=== PATIENT | male | born 1970 | race Caucasian/White ===

== ENCOUNTER 2016-09-18 14:22 | Emergency (ER) | payer OTHER ==
[~2016-09-18] VITALS: Ht 170.2 cm; Wt 111.0 kg
[~2016-09-18 14:22] MED LIST: SIMV20TA2 PO
[2016-09-18 14:27] VITALS: Ht 170.2 cm; Wt 111.0 kg
[2016-09-18] MEDS ORDERED: SODIUM CHLORIDE 0.9% 1000ML 1,000 ML IV STA (14:44)
[2016-09-18] MEDS ORDERED: KETOROLAC TROMETHAMINE 30 MG/ML VIAL IV STA (14:44)
[2016-09-18] MEDS ORDERED: ONDANSETRON 8 MG/54 ML D5W IV STA (14:44)
[2016-09-18] MEDS ORDERED: HYDROmorphone INJ 1 MG/ML SYR IV PRN (14:45)
[2016-09-18] MEDS ORDERED: ONDANSETRON INJ 2 MG/ML 2 ML VIAL ONE (15:01)
[2016-09-18 15:18] LABS: BASO % 0.1 %; BASO ABS # 0.01 K/uL (0-0.2); COMPLETE YES; EOS % 0.1 %; HEMATOCRIT 44.6 % (42-52); IG% 0.2 %; LYMPH % 8.1 %; LYMPH ABS # 1.05 K/uL (1.2-3.4); MEAN CELL VOLUME 84.2 fL (80-100); MEAN CORPUSCULAR HEMOGLOBIN 29.2 pg (25-34); MEAN CORPUSCULAR HGB CONC 34.8 g/dl (32-36); MEAN PLATELET VOLUME 10.1 fL (7.4-10.4); MONO % 6.2 %; NEUT % 85.3 %; PLATELET COUNT 196 K/uL (130-400); WHITE BLOOD COUNT 12.98 K/uL (4.8-10.8)
[2016-09-18 15:37] LABS: BUN/CREATININE RATIO 10.1 (10-20); CALCIUM 8.9 mg/dl (8.5-10.1); CREATININE 1.4 mg/dl (0.60-1.40); POTASSIUM 3.7 mmol/L (3.5-5.1)
--- NOTE | 2016-09-18 15:38 | DIAGNOSTIC IMAGING REPORT ---
ABDOMEN AND PELVIS CT WITHOUT CONTRAST CT DOSE: 1676.74 mGy.cm HISTORY: Flank pain lower abd pain, urinary symptoms, remote history of stones TECHNIQUE: Multiaxial CT images of the abdomen and pelvis were performed without the use of intravenous and oral contrast according to the standard department stone protocol. COMPARISON STUDY: 10/25/2015 FINDINGS: 2.5 mm obstructing calculus distal right ureter several centimeters from the right ureterovesical junction. Bladder is midline. There are no contained calcifications. Moderate right hydroureteronephrosis. Several additional nonobstructing right renal calcifications. Moderate right perinephric infiltrative change. Remainder the study including liver spleen and pancreas are unremarkable. Bowel pattern is nonobstructive. IMPRESSION: 2.5 mm obstructing calculus distal right ureter. Moderate right hydroureteronephrosis. Electronically signed by: Maximilian Vaughn M.D. 09/18/2016 3:36 PM Dictated Date/Time: 09/18/2016 3:33 PM
[2016-09-18 16:10] LABS: URINE APPEARANCE CLEAR (CLEAR); URINE BILIRUBIN NEG (NEG); URINE COLOR YELLOW; URINE EPITHELIAL CELL AUTO 0-5 /lpf (0-5); URINE NITRITE NEG (NEG); URINE SPECIFIC GRAVITY 1.023 (1.000-1.030); UROBILINOGEN NEG (NEG); ZZUR CULT IF INDIC CLEAN CATCH NO
[2016-09-18] MEDS ORDERED: OXYC1TAB3 PO (16:14)
[2016-09-18] MEDS ORDERED: PROM25TA9 PO (16:14)
[2016-09-18 16:25] LABS: MANUAL MICROSCOPIC REQUIRED? NO; REVIEW REQ? NO
[2016-09-18 16:43] VITALS: BP 122/69; PULSE 64; TEMP 36.6; O2SAT 99
--- NOTE | 2016-09-18 16:59 | EMERGENCY ROOM VISIT NOTE ---
History Report prepared by Jefry: Ryley Abebe Under the Supervision of: Dr. Jorge Preciado M.D. First contact with patient: 14:31 Chief Complaint: ABDOMINAL PAIN Stated Complaint: LOWER ABD PAIN,KIDNEY STONES Nursing Triage Summary: Pt c/o left lower abdominal pain. Began at 0800 this am. Hx kidney stones. Difficulty urinating. Denies hx diverticultitis History of Present Illness The patient is a 46 year old male who presents to the Emergency Room with complaints of suprapubic abdominal pain that began this morning. He rates his current pain a 6/10 in severity. At its worst his pain is a 10/10. He has a past medical history of kidney stones. This morning, he began having this pain. He then took his 's Oxycodone to try to alleviate the pain. He states that it did not help. He then became nauseated and vomited. He is also difficulty urinating. He denies any history of diabetes or heart disease. Patient denies LOC, headache, fevers, chills, diaphoresis, visual changes, neck pain, chest pain, breathing difficulties, back pain, melena, hematochezia, urinary symptoms , numbness, weakness, lymphadenopathy, rash, or other complaints. Source of History: patient Onset: this morning Position: abdomen (suprapubic) Symptom Intensity: 6/10 Quality: sharp Timing: constant Associated Symptoms: + nausea, + vomiting Review of Systems See HPI for pertinent positives and negatives. A total of ten systems were reviewed and were otherwise negative. Past Medical & Surgical Medical Problems: (1) CALCULUS OF KIDNEY (2) PURE HYPERCHOLESTEROLEM Family History Diabetes mellitus Hypertension Social History Smoking Status: Never Smoker Alcohol Use: none Marital Status: Housing Status: lives with significant other Occupation Status: employed Current/Historical Medications Scheduled Simvastatin (Zocor), 20 MG PO QPM Scheduled PRN Oxycodone Ir (Roxicodone Ir), 1-2 TAB PO Q4H PRN for Pain Promethazine Hcl (Phenergan), 25 MG PO Q6H PRN for Nausea Allergies Coded Allergies: No Known Allergies (Unverified , 10/25/15) Physical Exam Vital Signs Date Time Temp Pulse Resp B/P Pulse Ox O2 Delivery O2 Flow Rate FiO2 09/18/16 16:43 36.6 64 16 122/69 99 09/18/16 16:42 64 16 122/69 99 Room Air 09/18/16 15:37 64 16 122/69 99 09/18/16 14:27 36.6 82 20 149/89 99 Room Air Physical Exam GENERAL: Awake, alert, uncomfortable appearing, in no distress HENT: Normocephalic, atraumatic. Oropharynx unremarkable. EYES: Normal conjunctiva. Sclera non-icteric. NECK: Supple. No nuchal rigidity. FROM. No JVD. RESPIRATORY: Clear to auscultation. CARDIAC: Regular rate, normal rhythm. Extremities warm and well perfused. Pulses equal. ABDOMEN: Soft, non-distended. No tenderness to palpation. No rebound or guarding. No masses. RECTAL: Deferred. MUSCULOSKELETAL: Chest examination reveals no tenderness. The back is symmetrical on inspection without obvious abnormality. There is no CVA tenderness to palpation. No joint edema. LOWER EXTREMITIES: Calves are equal size bilaterally and non-tender. No edema. No discoloration. NEURO: Normal sensorium. No sensory or motor deficits noted. SKIN: No rash or jaundice noted. Medical Decision & Procedures ER Provider Diagnostic Interpretation: Radiology results as stated below per my review and radiologist interpretation: ABDOMEN AND PELVIS CT WITHOUT CONTRAST CT DOSE: 1676.74 mGy.cm HISTORY: Flank pain lower abd pain, urinary symptoms, remote history of stones TECHNIQUE: Multiaxial CT images of the abdomen and pelvis were performed without the use of intravenous and oral contrast according to the standard department stone protocol. COMPARISON STUDY: 10/25/2015 FINDINGS: 2.5 mm obstructing calculus distal right ureter several centimeters from the right ureterovesical junction. Bladder is midline. There are no contained calcifications. Moderate right hydroureteronephrosis. Several additional nonobstructing right renal calcifications. Moderate right perinephric infiltrative change. Remainder the study including liver spleen and pancreas are unremarkable. Bowel pattern is nonobstructive. IMPRESSION: 2.5 mm obstructing calculus distal right ureter. Moderate right hydroureteronephrosis. Electronically signed by: Maximilian Vaughn M.D. 09/18/2016 3:36 PM Dictated Date/Time: 09/18/2016 3:33 PM Laboratory Results 09/18/16 15:00 Red Blood Count 5.30, Mean Corpuscular Volume 84.2, Mean Corpuscular Hemoglobin 29.2, Mean Corpuscular Hemoglobin Concent 34.8, Mean Platelet Volume 10.1, Neutrophils (%) (Auto) 85.3, Lymphocytes (%) (Auto) 8.1, Monocytes (%) (Auto) 6.2, Eosinophils (%) (Auto) 0.1, Basophils (%) (Auto) 0.1, Neutrophils # (Auto) 11.08, Lymphocytes # (Auto) 1.05, Monocytes # (Auto) 0.81, Eosinophils # (Auto) 0.01, Basophils # (Auto) 0.01 09/18/16 15:00 Test 09/18/16 00:00 09/18/16 15:00 Urine Color YELLOW Urine Appearance CLEAR (CLEAR) Urine pH 7.0 (4.5-7.5) Urine Specific Raymond 1.023 (1.000-1.030) Urine Protein NEG (NEG) Urine Glucose (UA) NEG (NEG) Urine Ketones TRACE (NEG) Urine Occult Blood 3+ (NEG) Urine Nitrite NEG (NEG) Urine Bilirubin NEG (NEG) Urine Urobilinogen NEG (NEG) Urine Leukocyte Esterase NEG (NEG) Urine WBC (Auto) 0 /hpf (0-5) Urine RBC (Auto) >30 /hpf (0-4) Urine Hyaline Casts (Auto) 0 /lpf (0-5) Urine Epithelial Cells (Auto) 0-5 /lpf (0-5) Urine Bacteria (Auto) NEG (NEG) White Blood Count 12.98 K/uL (4.8-10.8) Red Blood Count 5.30 M/uL (4.7-6.1) Hemoglobin 15.5 g/dL (14.0-18.0) Hematocrit 44.6 % (42-52) Mean Corpuscular Volume 84.2 fL (80-100) Mean Corpuscular Hemoglobin 29.2 pg (25-34) Mean Corpuscular Hemoglobin Concent 34.8 g/dl (32-36) Platelet Count 196 K/uL (130-400) Mean Platelet Volume 10.1 fL (7.4-10.4) Neutrophils (%) (Auto) 85.3 % Lymphocytes (%) (Auto) 8.1 % Monocytes (%) (Auto) 6.2 % Eosinophils (%) (Auto) 0.1 % Basophils (%) (Auto) 0.1 % Neutrophils # (Auto) 11.08 K/uL (1.4-6.5) Lymphocytes # (Auto) 1.05 K/uL (1.2-3.4) Monocytes # (Auto) 0.81 K/uL (0.11-0.59) Eosinophils # (Auto) 0.01 K/uL (0-0.5) Basophils # (Auto) 0.01 K/uL (0-0.2) RDW Standard Deviation 37.0 fL (36.4-46.3) RDW Coefficient of Variation 12.1 % (11.5-14.5) Immature Granulocyte % (Auto) 0.2 % Immature Granulocyte # (Auto) 0.02 K/uL (0.00-0.02) Anion Gap 8.0 mmol/L (3-11) Est Creatinine Clear Calc Drug Dose 78.4 ml/min Estimated GFR () 69.3 Estimated GFR (Non- 59.8 BUN/Creatinine Ratio 10.1 (10-20) Calcium Level 8.9 mg/dl (8.5-10.1) Total Bilirubin 2.2 mg/dl (0.2-1) Direct Bilirubin 0.3 mg/dl (0-0.2) Aspartate Amino Transf (AST/SGOT) 31 U/L (15-37) Alanine Aminotransferase (ALT/SGPT) 57 U/L (12-78) Alkaline Phosphatase 112 U/L (45-117) Total Protein 7.1 gm/dl (6.4-8.2) Albumin 3.8 gm/dl (3.4-5.0) Lipase 316 U/L (73-393) Laboratory results reviewed by me Medications Administered Medications (Trade) Dose Ordered Sig/Elvira Route Start Time Stop Time Status Last Admin Dose Admin Ketorolac Tromethamine (Toradol Inj) 10 mg NOW STAT IV 09/18/16 14:44 09/18/16 14:46 DC 09/18/16 15:07 10 MG Hydromorphone HCl 1 mg 1 mg Q15M PRN IV 09/18/16 14:45 10/02/16 14:44 09/18/16 15:07 1 MG Sodium Chloride (Nss 1000ml) 1,000 ml @ 999 mls/hr Q1H1M STAT IV 09/18/16 14:44 09/18/16 15:44 DC 09/18/16 15:06 999 MLS/HR Ondansetron HCl (Zofran Inj) 8 mg STK-MED ONCE .ROUTE 09/18/16 15:01 09/18/16 15:02 DC 09/18/16 15:07 8 MG ED Course 1431: The patient was evaluated in room B3B. A complete history and physical exam was performed. 1444: Ordered Sodium Chloride 1000 ml @ 999 mls/hr IV, Toradol Inj 10 mg IV, Ondansetron HCl 8 mg IV 1445: Ordered Dilaudid Inj 1 mg IV 1501: Ordered Ondansetron HCl 8 mg .ROUTE 1610: After reevaluation, the patient feels better. 1619: I reevaluated the patient. Discussed results and discharge instructions: He verbalized understanding and agreement. The patient is ready for discharge. Medical Decision Prior records/ancillary studies reviewed. Triage Nursing notes reviewed and agree them. The patient's history was concerning for abdominal pain. Differential diagnosis: Etiologies such as renal colic, appendicitis, diverticulitis, mesenteric ischemia, aortic pathology, infections, inflammatory bowel disease, PUD, biliary pathology, UTI, as well as others were entertained. Physical examination findings: As above. ER treatment provided: IV normal saline IV Zofran IV Dilaudid IV Toradol On reassessment the patient felt better. Diagnostic interpretation by me: The labs revealed a slight leukocytosis. Chemistry panel was unremarkable. The patient has a slight increase in bili function LFTs are otherwise negative.. Urinalysis revealed hematuria. There was no sign of UTI. Imaging studies: CT of the abdomen and pelvis as above. Consultation: A consultation was placed with the hospitalist. The case was discussed and diagnostics were reviewed. The patient was evaluated in the ER for further treatment. It appears that the patient has isolated renal colic from a right sided stone. By the evaluation outlined above emergent etiologies such as appendicitis, diverticulitis, mesenteric ischemia, aortic pathology, infections, inflammatory bowel disease, PUD, biliary pathology, UTI, as well as others were deemed relatively unlikely. The patient and family were informed about the findings as listed above. All questions were answered and they were pleased with the treatment. Return instructions were outlined and the patient was discharged in stable condition. Outpatient prescription management: Oxy IR 5mg 1-2 po Q4 hrs prn Flomax 0.4mg daily. Phenergan Referral: The pt was referred to [facility] for follow up care regarding their stone. The chart was completed utilizing [employer] Speech voice recognition software. Grammatical errors, random word insertions, pronoun errors, and incomplete sentences are an occasional consequence of this system due to software limitations, ambient noise, and hardware issues. Any formal questions or concerns about the content, text, or information contained within the body of this dictation should be directly addressed to the physician for clarification. [place] Drug Monitoring Program Search Results: patient reviewed within database, no issues identified Impression Primary Impression: Ureterolithiasis Scribe Attestation The scribe's documentation has been prepared under my direction and personally reviewed by me in its entirety. I confirm that the note above accurately reflects all work, treatment, procedures, and medical decision making performed by me. Departure Information Dispostion Home / Self-Care Prescriptions Promethazine Hcl (Phenergan) 25 Mg Tab 25 MG PO Q6H Y for Nausea, #10 TAB Prov: Jorge Preciado MD 09/18/16 Oxycodone Ir (Roxicodone Ir) 5 Mg Tab 1-2 TAB PO Q4H Y for Pain, #15 TAB Prov: Jorge Preciado MD 09/18/16 Referrals No Doctor, Assigned (PCP) Forms Call Back Authorization, HOME CARE DOCUMENTATION FORM, IMPORTANT VISIT INFORMATION Patient Instructions [facility] Additional Instructions KIDNEY STONE INSTRUCTIONS: Oxycodone Immediate Release (OxyIR) 5mg: Take 1-2 pills every four hours for pain. Avoid alcohol, operating machinery or dangerous equipment, working on ladders or roofs, DRIVING, or situations where being under the influence may be dangerous. It is recommended to use an [id number] stool softener such as Colace, 100mg twice daily while taking this medication to avoid constipation. Phenergan 25mg: Take one every six hours as needed for nausea. Avoid alcohol, operating machinery or dangerous equipment, working on ladders or roofs, DRIVING , or situations where being under the influence may be dangerous. Ibuprofen(Motrin, Advil) may be used for fever or pain. Use 600mg every six hours as needed. Take with food. Avoid using more than 2400mg in a 24 hour period. Do not use 2400mg per day for more than three consecutive days without physician direction. Prolonged inappropriate use can lead to stomach upset or ulcers. This medication can be taken if you need to drive, work, or perform activities which may be dangerous when taking narcotic pain medication. (AND/OR) Acetaminophen(Tylenol) may be used for fever or pain. Use 1000mg every six hours as needed. Avoid using more than 4000mg in a 24 hour period. This medication can be taken if you need to drive, work, or perform activities which may be dangerous when taking narcotic pain medication. Strain your urine and collect all the stones or debris for the urologists. Rest and avoid strenuous activity until your stone passes and symptoms resolve. Drink plenty of fluids. Return to the ER for worsening abdominal or back pain, vomiting, fevers, passing out, or as needed. Follow up with [facility] tomorrow, [phone], to arrange a visit.
== END 2016-09-18 16:44 | disposition home or self-care (01) ==
LOC: C.EDB 14:24
DX: N20.1 Calculus of ureter (principal); N13.30 Unspecified hydronephrosis; E78.00 Pure hypercholesterolemia, unspecified; Z87.442 Personal history of urinary calculi; Z79.899 Other long term (current) drug therapy; Z83.3 Family history of diabetes mellitus; Z82.49 Family history of ischemic heart disease and other diseases of the circulatory system

== ENCOUNTER 2016-09-21 03:28 | Emergency (ER) | payer OTHER ==
[~2016-09-21] VITALS: Ht 170.2 cm; Wt 112.1 kg
[~2016-09-21 03:28] MED LIST changes: +OXYC1TAB3 PO; +PROM25TA9 PO
[2016-09-21 03:35] VITALS: TEMP 37; Ht 170.2 cm; Wt 112.1 kg
[2016-09-21] MEDS ORDERED: KETOROLAC TROMETHAMINE 30 MG/ML VIAL IV STA (03:56)
[2016-09-21] MEDS ORDERED: SODIUM CHLORIDE 0.9% 1000ML 1,000 ML IV ONE (04:00)
[2016-09-21 04:35] LABS: BASO % 0.1 %; BASO ABS # 0.01 K/uL (0-0.2); COMPLETE YES; EOS % 1.6 %; HEMATOCRIT 39.8 % (42-52); LYMPH % 13.7 %; LYMPH ABS # 1.09 K/uL (1.2-3.4); MEAN CELL VOLUME 84.3 fL (80-100); MEAN CORPUSCULAR HEMOGLOBIN 29.4 pg (25-34); MEAN CORPUSCULAR HGB CONC 34.9 g/dl (32-36); MEAN PLATELET VOLUME 9.8 fL (7.4-10.4); MONO % 10.4 %; NEUT % 74.2 %; PLATELET COUNT 180 K/uL (130-400); RED BLOOD COUNT 4.72 M/uL (4.7-6.1); URINE APPEARANCE CLEAR (CLEAR); URINE BILIRUBIN NEG (NEG); URINE COLOR YELLOW; URINE NITRITE NEG (NEG); URINE PH 5.5 (4.5-7.5); URINE SPECIFIC GRAVITY 1.025 (1.000-1.030); UROBILINOGEN NEG (NEG); WHITE BLOOD COUNT 7.95 K/uL (4.8-10.8); ZZUR CULT IF INDIC CLEAN CATCH NO
[2016-09-21 04:44] LABS: MANUAL MICROSCOPIC REQUIRED? NO; REVIEW REQ? NO
[2016-09-21 04:53] LABS: BUN/CREATININE RATIO 7.9 (10-20); CALCIUM 8.7 mg/dl (8.5-10.1); CREATININE 1.6 mg/dl (0.60-1.40); POTASSIUM 4.1 mmol/L (3.5-5.1)
--- NOTE | 2016-09-21 07:19 | DIAGNOSTIC IMAGING REPORT ---
RENAL ULTRASOUND CLINICAL HISTORY: Recent right ureteral calculi on ct COMPARISON STUDY: CT of the abdomen and pelvis September 18, 2016 and KUB September 21, 2016. TECHNIQUE: Sonography of the kidneys and the urinary bladder was performed. FINDINGS: Mild right hydronephrosis is similar to prior CT of September 18, 2016. There is no left hydronephrosis. The right kidney measures 11.7 x 6.7 x 5.4 cm and left measures 11.6 x 6 x 5.6 cm. A distal right ureteral calculus located approximately 1.5 cm from the bladder is noted. This measures approximately 3 mm. Neither ureteral jet was identified. IMPRESSION: Mild right hydroureteronephrosis due to a distal right ureteral calculus which measures approximately 3 mm. Electronically signed by: Garry Fitch M.D. 09/21/2016 7:18 AM Dictated Date/Time: 09/21/2016 7:14 AM
--- NOTE | 2016-09-21 07:21 | DIAGNOSTIC IMAGING REPORT ---
ULTRASOUND RIGHT UPPER QUADRANT ABDOMEN CLINICAL HISTORY: Right upper quadrant abdominal pain. COMPARISON STUDY: Abdominal CT dated 09/18/2016. TECHNIQUE: Real-time, grayscale, and color flow sonography of the right upper quadrant of the abdomen was performed. Images are reviewed in the transverse and longitudinal planes. FINDINGS: Liver: The liver is normal in size and echotexture. There is no intrahepatic biliary ductal dilatation. The main portal vein is patent. Gallbladder: The gallbladder is contracted and grossly normal in appearance. No gallstones are identified. There is no gallbladder wall thickening. There is trace nonspecific pericholecystic fluid. A sonographic Smyth's sign is reportedly absent. The common bile duct measures up to 0.3 cm in diameter. Pancreas: Not well visualized due to overlying bowel gas. Right kidney: Survey images of the right kidney demonstrate normal size and echotexture. There is mild right-sided hydronephrosis. Ascites: None. IMPRESSION: 1. There is mild right hydronephrosis. This corresponds to the patient's known obstructing ureteral calculus seen on 09/18/[address] 2. No gallstones are identified. The gallbladder is contracted and there is no sonographic evidence of acute cholecystitis. 3. There is trace nonspecific pericholecystic fluid. 4. The pancreas was not well visualized due to overlying bowel gas. Electronically signed by: Grzegorz Mcdaniel M.D. 09/21/2016 7:20 AM Dictated Date/Time: 09/21/2016 7:16 AM
[2016-09-21 07:52] VITALS: BP 131/75; PULSE 64; O2SAT 97
--- NOTE | 2016-09-21 07:53 | DIAGNOSTIC IMAGING REPORT ---
KUB CLINICAL HISTORY: Nephrolithiasis. Known right ureteral calculus. FINDINGS: 2 AP supine abdominal radiographs are correlated with abdominal CT dated 09/18/2016 and compared to study dated 12/09/2007. There is a nonobstructed abdominal bowel gas pattern. Moderate fecal retention is noted in the right colon. No calcifications are seen projecting over either kidney. There are 3 small calcification identified in the right hemipelvis. These are both new from 12/09/2007 and one of these likely represents the patient's known obstructing ureteral stone. Phleboliths in the left hemipelvis are unchanged. The bony structures appear intact. IMPRESSION: 1. There are 3 calcifications identified in the right hemipelvis measuring 2 to 3 mm. It is unclear which of these calcifications represents the patient's known obstructing distal ureteral stone. 2. No additional calcifications project over either kidney. Electronically signed by: Grzegorz Mcdaniel M.D. 09/21/2016 7:52 AM Dictated Date/Time: 09/21/2016 7:49 AM
--- NOTE | 2016-09-22 02:42 | EMERGENCY ROOM VISIT NOTE ---
History First contact with patient: 03:48 Chief Complaint: ABDOMINAL PAIN Stated Complaint: STOMACH PAIN Nursing Triage Summary: Reports consistant severe mid lower abdomen. Denies n/v. Reports last BM 09/20 and was "small". Denies diarrhea. Abdomen appears WNL. BS present. History of Present Illness The patient is a 46 year old male who presents to the Emergency Room with complaints of very low abdominal pain for the past one day. He states his pain is just to the right of midline. He has not had nausea, vomiting, or diarrhea. He was diagnosed with a ureteral calculi on CT imaging 3 days ago, but states the stone was small and he believes he may have passed it. The patient has not taken his oxycodone that was prescribed to him because he has otherwise been feeling well. No difficulty using the bathroom. No previous surgical history of his abdomen. No fever or chills. He rates his discomfort a dull and persistent 7/10. Review of Systems More than 10 systems were reviewed and otherwise negative with the exception of history of present illness. Past Medical/Surgical History Medical Problems: (1) CALCULUS OF KIDNEY (2) PURE HYPERCHOLESTEROLEM Family History Diabetes mellitus Hypertension Social History Smoking Status: Never Smoker Alcohol Use: none Marital Status: Housing Status: lives with significant other Occupation Status: employed Current/Historical Medications Scheduled Simvastatin (Zocor), 20 MG PO QPM Scheduled PRN Oxycodone Ir (Roxicodone Ir), 1-2 TAB PO Q4H PRN for Pain Promethazine Hcl (Phenergan), 25 MG PO Q6H PRN for Nausea Allergies Coded Allergies: No Known Allergies (Unverified , 09/21/16) Physical Exam Vital Signs Date Time Temp Pulse Resp B/P Pulse Ox O2 Delivery O2 Flow Rate FiO2 09/21/16 07:52 64 20 131/75 97 09/21/16 06:16 73 16 127/71 96 Room Air 09/21/16 03:35 37.0 74 16 141/91 95 Room Air Pain Rating (0-10): 2.0 Physical Exam VITALS: Vitals are noted on the nurse's note and reviewed by myself. Vital signs stable. GENERAL: Well-developed, well-nourished, white male who appears mild to moderately uncomfortable. He is able to lay flat on his emergency department bed. Patient is cooperative with the examination. HEAD: Normocephalic atraumatic. HEART: Regular rate and rhythm without murmurs gallops or rubs. LUNGS: Clear to auscultation bilaterally without wheezes, rales or rhonchi. No retractions or accessory muscle use. ABDOMEN: Positive normal bowel sounds x 4. Soft, nontender, without masses or organomegaly. No guarding or rebound tenderness. MUSCULOSKELETAL: No muscle atrophy, erythema, or edema noted. Full range of motion without joint tenderness in all extremities. Medical Decision & Procedures ER Provider Diagnostic Interpretation: KUB CLINICAL HISTORY: Nephrolithiasis. Known right ureteral calculus. FINDINGS: 2 AP supine abdominal radiographs are correlated with abdominal CT dated 09/18/2016 and compared to study dated 12/09/2007. There is a nonobstructed abdominal bowel gas pattern. Moderate fecal retention is noted in the right colon. No calcifications are seen projecting over either kidney. There are 3 small calcification identified in the right hemipelvis. These are both new from 12/09/2007 and one of these likely represents the patient's known obstructing ureteral stone. Phleboliths in the left hemipelvis are unchanged. The bony structures appear intact. IMPRESSION: 1. There are 3 calcifications identified in the right hemipelvis measuring 2 to 3 mm. It is unclear which of these calcifications represents the patient's known obstructing distal ureteral stone. 2. No additional calcifications project over either kidney. RENAL ULTRASOUND CLINICAL HISTORY: Recent right ureteral calculi on ct COMPARISON STUDY: CT of the abdomen and pelvis September 18, 2016 and KUB September 21, 2016. TECHNIQUE: Sonography of the kidneys and the urinary bladder was performed. FINDINGS: Mild right hydronephrosis is similar to prior CT of September 18, 2016. There is no left hydronephrosis. The right kidney measures 11.7 x 6.7 x 5.4 cm and left measures 11.6 x 6 x 5.6 cm. A distal right ureteral calculus located approximately 1.5 cm from the bladder is noted. This measures approximately 3 mm. Neither ureteral jet was identified. IMPRESSION: Mild right hydroureteronephrosis due to a distal right ureteral calculus which measures approximately 3 mm. ULTRASOUND RIGHT UPPER QUADRANT ABDOMEN CLINICAL HISTORY: Right upper quadrant abdominal pain. COMPARISON STUDY: Abdominal CT dated 09/18/2016. TECHNIQUE: Real-time, grayscale, and color flow sonography of the right upper quadrant of the abdomen was performed. Images are reviewed in the transverse and longitudinal planes. FINDINGS: Liver: The liver is normal in size and echotexture. There is no intrahepatic biliary ductal dilatation. The main portal vein is patent. Gallbladder: The gallbladder is contracted and grossly normal in appearance. No gallstones are identified. There is no gallbladder wall thickening. There is trace nonspecific pericholecystic fluid. A sonographic Smyth's sign is reportedly absent. The common bile duct measures up to 0.3 cm in diameter. Pancreas: Not well visualized due to overlying bowel gas. Right kidney: Survey images of the right kidney demonstrate normal size and echotexture. There is mild right-sided hydronephrosis. Ascites: None. IMPRESSION: 1. There is mild right hydronephrosis. This corresponds to the patient's known obstructing ureteral calculus seen on 09/18/[address] 2. No gallstones are identified. The gallbladder is contracted and there is no sonographic evidence of acute cholecystitis. 3. There is trace nonspecific pericholecystic fluid. 4. The pancreas was not well visualized due to overlying bowel gas. Laboratory Results 09/21/16 02:40 Red Blood Count 4.72, Mean Corpuscular Volume 84.3, Mean Corpuscular Hemoglobin 29.4, Mean Corpuscular Hemoglobin Concent 34.9, Mean Platelet Volume 9.8, Neutrophils (%) (Auto) 74.2, Lymphocytes (%) (Auto) 13.7, Monocytes (%) (Auto) 10.4, Eosinophils (%) (Auto) 1.6, Basophils (%) (Auto) 0.1, Neutrophils # (Auto ) 5.89, Lymphocytes # (Auto) 1.09, Monocytes # (Auto) 0.83, Eosinophils # (Auto ) 0.13, Basophils # (Auto) 0.01 09/21/16 02:40 Test 09/21/16 02:40 White Blood Count 7.95 K/uL (4.8-10.8) Red Blood Count 4.72 M/uL (4.7-6.1) Hemoglobin 13.9 g/dL (14.0-18.0) Hematocrit 39.8 % (42-52) Mean Corpuscular Volume 84.3 fL (80-100) Mean Corpuscular Hemoglobin 29.4 pg (25-34) Mean Corpuscular Hemoglobin Concent 34.9 g/dl (32-36) Platelet Count 180 K/uL (130-400) Mean Platelet Volume 9.8 fL (7.4-10.4) Neutrophils (%) (Auto) 74.2 % Lymphocytes (%) (Auto) 13.7 % Monocytes (%) (Auto) 10.4 % Eosinophils (%) (Auto) 1.6 % Basophils (%) (Auto) 0.1 % Neutrophils # (Auto) 5.89 K/uL (1.4-6.5) Lymphocytes # (Auto) 1.09 K/uL (1.2-3.4) Monocytes # (Auto) 0.83 K/uL (0.11-0.59) Eosinophils # (Auto) 0.13 K/uL (0-0.5) Basophils # (Auto) 0.01 K/uL (0-0.2) RDW Standard Deviation 37.2 fL (36.4-46.3) RDW Coefficient of Variation 12.1 % (11.5-14.5) Immature Granulocyte % (Auto) 0.0 % Immature Granulocyte # (Auto) 0.00 K/uL (0.00-0.02) Urine Color YELLOW Urine Appearance CLEAR (CLEAR) Urine pH 5.5 (4.5-7.5) Urine Specific [place] 1.025 (1.000-1.030) Urine Protein NEG (NEG) Urine Glucose (UA) NEG (NEG) Urine Ketones NEG (NEG) Urine Occult Blood NEG (NEG) Urine Nitrite NEG (NEG) Urine Bilirubin NEG (NEG) Urine Urobilinogen NEG (NEG) Urine Leukocyte Esterase NEG (NEG) Anion Gap 4.0 mmol/L (3-11) Est Creatinine Clear Calc Drug Dose 69.0 ml/min Estimated GFR () 59.0 Estimated GFR (Non- 50.9 BUN/Creatinine Ratio 7.9 (10-20) Calcium Level 8.7 mg/dl (8.5-10.1) Total Bilirubin 1.9 mg/dl (0.2-1) Aspartate Amino Transf (AST/SGOT) 72 U/L (15-37) Alanine Aminotransferase (ALT/SGPT) 89 U/L (12-78) Alkaline Phosphatase 125 U/L (45-117) Total Protein 6.7 gm/dl (6.4-8.2) Albumin 3.3 gm/dl (3.4-5.0) Globulin 3.4 gm/dl (2.5-4.0) Albumin/Globulin Ratio 1.0 (0.9-2) Lipase 556 U/L (73-393) Medications Administered Medications (Trade) Dose Ordered Sig/Elvira Route Start Time Stop Time Status Last Admin Dose Admin Sodium Chloride (Nss 1000ml) 1,000 ml @ 999 mls/hr Q1H1M ONCE IV 09/21/16 04:00 09/21/16 05:00 DC 09/21/16 04:14 999 MLS/HR Ketorolac Tromethamine (Toradol Inj) 30 mg NOW STAT IV 09/21/16 03:56 09/21/16 03:58 DC 09/21/16 04:16 30 MG ED Course Physical exam and history were performed. Nursing notes and EMR were reviewed. Patient appears to have reports a very low abdominal pain for the past day. He has a recent diagnosis of ureteral calculi on the right. On examination the patient does not have reproducible tenderness on palpation but he does appear uncomfortable. IV access was established and labs were obtained. The patient was hydrated medicated as above. Because of his recent CT scan I elected to perform a KUB and ultrasound of the kidneys. The patient's blood work is as above and was reviewed. He does not have a significantly elevated white blood cell count or gross anemia, bandemia, or significant electrolyte imbalance. Lipase and transaminases are slightly elevated when compared to labs from a few days ago, and because of this I did elect to perform an ultrasound of the right upper quadrant. The patient ultrasound appears to show a small distal right UVJ ureteral calculi. Clinically this is to correlate with the patient's symptoms. Ultrasound of the gallbladder does not show obvious signs of cholecystitis or other explanation for his slight increase of LFTs and transaminases. I discussed options of care with the patient, as he seems to have a persistent calculi. The patient feels comfortable with discharge home. He will need to follow with urology for his symptoms. The patient has active prescriptions for oxycodone, which she has not started. He may take these as prescribed. He was otherwise invited back to the ER with any new, worsening, or concerning symptoms. The chart was completed utilizing Dragon Speech Voice Recognition Software. Grammatical errors, random word insertions, pronoun errors, and incomplete sentences are an occasional consequence of this system due to software limitations, ambient noise, and hardware issues. Any formal questions or concerns about the content, text, or information contained within the body of this dictation should be directly addressed to the provider for clarification. . Medical Decision Differential diagnosis: Etiologies such as renal colic, appendicitis, diverticulitis, mesenteric ischemia, aortic pathology, infections, inflammatory bowel disease, PUD, biliary pathology, UTI, as well as others were entertained. Impression Primary Impression: Ureteral calculus, right Departure Information Dispostion Home / Self-Care Condition FAIR Referrals Jose Atkinson M.D. Forms Call Back Authorization, HOME CARE DOCUMENTATION FORM, IMPORTANT VISIT INFORMATION Patient Instructions My [facility] Additional Instructions You were seen and evaluated today on an emergency basis only. This is not a substitute for, or an effort to provide, complete comprehensive medical care. It is not possible to recognize and treat all injuries or illnesses in a single emergency department visit. For this reason it is recommended that you followup with urology, Dr. Atkinson's office for ongoing evaluation For baseline pain relief you may alternate ibuprofen and acetaminophen every 4 hours for pain control. Take 600 mg ibuprofen (Advil) and then 4 hours later take 1000 mg acetaminophen (Tylenol). Do not take more than 3000 mg acetaminophen in a single day. Continue your at-home medications as prescribed You are welcome to return to the emergency department anytime with new, worsening, or concerning symptoms.
== END 2016-09-21 07:55 | disposition home or self-care (01) ==
LOC: C.EDB 03:29
DX: N20.1 Calculus of ureter (principal); Z87.442 Personal history of urinary calculi; E78.00 Pure hypercholesterolemia, unspecified; Z83.3 Family history of diabetes mellitus; Z82.49 Family history of ischemic heart disease and other diseases of the circulatory system; Z79.899 Other long term (current) drug therapy

== ENCOUNTER → 2017-03-23 | Outpatient (CLI) | payer OTHER ==
[~2017-03-23] MED LIST changes: -OXYC1TAB3 PO; -PROM25TA9 PO
[2017-03-23 11:14] LABS: ESTIMATED AVERAGE GLUCOSE 128 mg/dl; HA1C FLAG Normal (Normal)
[2017-03-23 11:15] LABS: ALT/SGPT 49 U/L (12-78); AST/SGOT 30 U/L (15-37); BLOOD UREA NITROGEN 13 mg/dl (7-18); BUN/CREATININE RATIO 12.5 (10-20); CALCIUM 8.7 mg/dl (8.5-10.1); CARBON DIOXIDE 27 mmol/L (21-32); CHLORIDE 108 mmol/L (98-107); CREATININE 1.01 mg/dl (0.60-1.40); GLUCOSE 108 mg/dl (70-99); POTASSIUM 4.4 mmol/L (3.5-5.1); SODIUM 143 mmol/L (136-145)
[2017-03-23 11:24] LABS: ALKALINE PHOSPHATASE 102 U/L (45-117); CHOLESTEROL 157 mg/dl (0-200); CHOLESTEROL/HDL RATIO 2.5; HDL CHOLESTEROL 62 mg/dl; LDL CHOLESTEROL CALCULATED 78 mg/dl; TRIGLYCERIDES 86 mg/dl (0-150); VERY LOW DENSITY LIPOPROT CALC 17 mg/dl
== END | disposition home or self-care (01) ==
LOC: C.LAB 09:37
PROVIDERS: ATTEND Nurse Practitioner Family
DX: E78.00 Pure hypercholesterolemia, unspecified (principal); R73.03 Prediabetes; E66.9 Obesity, unspecified

== ENCOUNTER 2019-07-02 17:28 | Inpatient (IN) ==
[2019-07-02 18:35] LABS: Basophils # (auto) 0.01 K/uL (0-0.2); Basophils % (auto) 0.1 %; Eosinophils # (auto) 0.05 K/uL (0-0.5); Eosinophils % (auto) 0.5 %; Hematocrit (blood only) 43.4 % (42-52); Hemoglobin 15.5 g/dL (14.0-18.0); Immature Granulocytes # (auto) 0.02 K/uL (0.00-0.02); Immature Granulocytes % (auto) 0.2 %; Lymphocytes # (auto) 1.59 K/uL (1.2-3.4); Lymphocytes % (auto) 16.3 %; Mean Corpuscular Hgb Conc 35.7 g/dL (32-36); Mean Corpuscular Volume 83.9 fL (80-100); Mean Platelet Volume 10.3 fL (7.4-10.4); Monocytes # (auto) 0.76 K/uL (0.11-0.59); Monocytes % (auto) 7.8 %; Neutrophils # (auto) 7.32 K/uL (1.4-6.5); Neutrophils % (auto) 75.1 %; Platelet Count 198 K/uL (130-400); RDW Coefficient of Variation 12.5 % (11.5-14.5); RDW Standard Deviation 37.8 fL (36.4-46.3); Red Blood Count 5.17 M/uL (4.7-6.1); White Blood Count 9.75 K/uL (4.8-10.8)
[2019-07-02 18:58] LABS: Albumin Level 3.9 gm/dl (3.4-5.0); BUN Creatinine Ratio 9.7 (10-20); Calcium 9.6 mg/dl (8.5-10.1); Est GFR (African American) 90.9; Est GFR (Non-African American) 78.4; Potassium 3.7 mmol/L (3.5-5.1)
[2019-07-02 19:00] LABS: Bilirubin,Total 1.9 mg/dl (0.2-1); Globulin 3.8 gm/dl (2.5-4.0); Total Protein 7.7 gm/dl (6.4-8.2)
[2019-07-02] MEDS ORDERED: SODIUM CHLORIDE 0.9% 1000ML 1,000 ML IV ONE (20:05)
[2019-07-02] MEDS ORDERED: IOVERSOL 100ml IV PRN (20:20)
--- NOTE | 2019-07-02 20:45 | Emergency Department Note ---
ED Provider Note CHIEF COMPLAINT: Abdominal pain HISTORY OF PRESENTING ILLNESS: This is a 49-year-old male who presents to the emergency department by private vehicle with complaint of abdominal pain that started this morning around 4 AM. Patient states pain was mostly in the upper abdomen and radiating down the middle and slightly to the left, sharp and sev ere, woke him up several times throughout the rest of the night and persisted today. Patient states that the pain has been a constant crampy pain, but has intermittently gotten severe as a stabbing pain, he currently rates it a 2/10, but at its worst he rates it as a 9/10. He states the pain got severe after eating today. He tried to take Advil, but states that he vomited right after taking this and has not tried anything else for the pain. He has vomited twice, both times when he was in severe pain. He denies any persistent nausea. He has not had any diarrhea and had a normal bowel movement this afternoon. He reports a history of frequent kidney stones, but states that this feels different from when he has had kidney stones in the past. He denies any chest pain, shortness of breath, sweating, lightheadedness or passing out. He denies any pain in his back. He denies any urinary symptoms. He denies any previous abdominal surgeries. REVIEW OF SYSTEMS: A complete 10 point review of systems was reviewed with the patient with pertinent positives and negatives as per history of present illness. All else were negative. PAST MEDICAL HISTORY: Type 2 diabetes, hyperlipidemia, kidney stones SOCIAL HISTORY: Lives at home with his , he denies tobacco use ALLERGIES: No known allergies PHYSICAL EXAM: CONSTITUTIONAL: Pleasant and cooperative. Nontoxic-appearing and in no acute distress. Well appearing and well nourished. HEENT: Normocephalic, atraumatic. PERRL, EOMI. NECK: Supple, full active range of motion without discomfort. RESPIRATORY: Clear to auscultation bilaterally with no wheezing, crackles, rhonchi or stridor. Equal expansion bilaterally. CARDIOVASCULAR: Regular rate and rhythm with no murmurs, rubs or gallops. Normal peripheral perfusion. No edema. GASTROINTESTINAL: Tenderness in the epigastric and mid abdomen as well as left upper quadrant and left mid abdominal tenderness. No rebound tenderness or guarding. Soft, slightly distended, obese abdomen. No palpable masses or HSM. Bowel sounds present in all quadrants. No CVA tenderness bilaterally. MUSCULOSKELETAL: Full range of motion of all joints without discomfort. INTEGUMENTARY: No rash or other significant dermatologic conditions noted. NEUROLOGIC: Alert and oriented X 4 with normal affect. Normal strength and sensation in all 4 extremities. Normal speech. Normal gait observed. ED COURSE AND MEDICAL DECISION MAKING: CC: Patient presenting with complaint of abdominal pain DIFFERENTIAL DIAGNOSIS: Includes, but not limited to gastritis, peptic ulcer disease, gastroenteritis, pancreatitis, cholecystitis, cholelithiasis, ureteral stone, small bowel obstruction, ACS, AAA, among others. INTERPRETATION OF LABS: No leukocytosis, no anemia, normal platelets, hyperglycemia, no other significant electrolyte abnormalities, normal renal function, elevated T bili, otherwise normal liver enzymes and normal lipase. Troponin is negative. UA shows trace ketones but is otherwise negative. IMAGING: CT OF THE ABDOMEN AND PELVIS WITH CONTRAST CLINICAL HISTORY: Abdominal pain and vomiting. COMPARISON STUDY: CT of the abdomen and pelvis September 18, 2016. Right upper quadrant ultrasound September 21, 2016. TECHNIQUE: Following IV administration of 94 mL of Optiray-320, axial images of the abdomen and pelvis were obtained from the lung bases to the proximal femurs. Images were reviewed in the axial, sagittal, and coronal planes. IV contrast was administered without complication. Automated exposure control was utilized for the study. A dose lowering technique was utilized adhering to the principles of ALARA. CT DOSE: 1314.53 mGy.cm FINDINGS: Lung bases are unremarkable. No pneumatosis, free air or portal venous gas is present. The liver, spleen, adrenal glands and pancreas are unremarkable. Bilateral renal calculi measure up to 4 mm. There is a probable 1 cm cyst within the right kidney. There are no ureteral calculi. There is no hydronephrosis. Several loops of mildly dilated proximal small bowel are noted. Transition point is noted within the posterior mid abdomen shown on axial image 246 of 461 with small bowel feces sign. The etiology for the bowel obstruction is not clear on this examination. The appendix is normal. No lymphadenopathy is present. No suspicious osseous lesions are present. Small fat-containing umbilical hernia is noted. IMPRESSION: 1. Mild dilatation of the proximal small bowel with discrete transition point within the posterior mid abdomen with decompressed distal small bowel. This represents a moderate grade small bowel obstruction of uncertain etiology. 2. Bilateral nephrolithiasis. EKG: Shows normal sinus rhythm with a rate of 88 bpm, sinus arrhythmia, normal intervals, nonspecific ST and T wave abnormality in the inferior leads that does not appear to be new, no ectopy, no significant change when compared to previous EKG from 10/11/1998 by my interpretation. MEDICATION RECONCILIATION: I attest that I have personally reviewed the patient's current medication list. INITIAL VITAL SIGNS REVIEW: I reviewed the patient's initial vital signs and interpret them as follows: T: Afebrile; BP: Hypertensive; HR: Within normal limits; RR: Within normal limits; Pulse Ox: Within normal limits on room air. Blood pressure screening: The patient was found to have an elevated blood pressure and was referred to the inpatient team for further management. MDM SUMMARY: Patient was evaluated at bedside, history and physical exam performed. Patient is alert and oriented, no acute distress, resting calmly in stretcher. Patient is afebrile and nontoxic-appearing. The abdomen is slightly distended and tender in the mid abdomen, no acute abdomen. Orders were placed at bedside for labs, UA, IV fluid bolus as precaution, CT abdomen/pelvis with IV contrast to evaluate for abdominal pain. EKG and troponin to evaluate for ACS. Patient was offered something for pain or nausea, he states both of these are adequately controlled and he declined at this time. Patient discussed with Dr. Matias, who agrees with my assessment, plan, and disposition. Labs and imaging reviewed as above, labs are fairly unremarkable, he does have an elevated T bili which I suspect is secondary to the vomiting. EKG and troponin are negative. No UTI. CT imaging reviewed as above, noting findings consistent with a small bowel obstruction. I spoke on the phone with Dr. Gonzalez, general surgery, who recommended keeping the patient n.p.o. and have him admitted to the medicine service. He did not recommend placing an NG tube at this time. I spoke with Dr. Coe, [facility] Hospitalist, who agrees to evaluate the patient for admission. Patient reassessed multiple times throughout ED stay, he has remained hemodynamically stable and afebrile and his pain has been well controlled. He has not been vomiting. Patient and his were updated on all results and plan for admission, all questions were answered at this time. They were comfortable with this plan. The patient was stable at time of admission. The chart was completed utilizing [employer] Speech voice recognition software. Grammatical errors, random word insertions, pronoun errors, and incomplete sentences are an occasional consequence of this system due to software limitations, ambient noise, and hardware issues. Any formal questions or concerns about the content, text, or information contained within the body of this dictation should be directly addressed to the nurse practitioner for clarification. 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 Feels Safe at Home: Yes Smoking Status: Never smoker Hx Alcohol Use: No Hx Substance Use: No Childhood Exposure to Second-Hand Smoke: No Dental Care, Regularly: Yes Physical Activity Frequency: Does not Exercise Seatbelt Use: always Sunscreen Use: Yes Results & Data Vital Signs Vital Signs - 24 hr 07/02/19 17:34 07/02/19 19:43 07/02/19 20:48 Temperature 36.3 C L Temperature Source Oral Pulse Rate 84 Pulse Rate [Apical] 85 80 Pulse Rhythm [Apical] Regular Regular Pulse Strength [Apical] Normal Normal Respiratory Rate 16 18 18 Respiratory Effort / Characteristics Non-Labored Non-Labored Non-Labored Respiratory Depth Normal Normal Normal Blood Pressure 156/81 H Blood Pressure [Right Arm] 144/103 H 170/94 H Blood Pressure Mean 106 Blood Pressure Mean [Right Arm] 116 119 Blood Pressure Position [Right Arm] Sitting Sitting Pulse Oximetry 98 97 98 Oxygen Delivery Method Room Air Room Air Room Air Sepsis Recent Fever Within 48 Hours No Sepsis New/Unexplained Change in Mental Status No Sepsis Action Taken by Nursing No Action Required 07/02/19 21:51 Temperature Temperature Source Pulse Rate 81 Pulse Rate [Apical] Pulse Rhythm [Apical] Pulse Strength [Apical] Respiratory Rate 18 Respiratory Effort / Characteristics Respiratory Depth Blood Pressure 143/91 H Blood Pressure [Right Arm] Blood Pressure Mean 108 Blood Pressure Mean [Right Arm] Blood Pressure Position [Right Arm] Pulse Oximetry 93 Oxygen Delivery Method Room Air Sepsis Recent Fever Within 48 Hours Sepsis New/Unexplained Change in Mental Status Sepsis Action Taken by Nursing Laboratory Data Result diagrams: 07/02/19 18:15 07/02/19 18:15 Lab Results 07/02/19 07/02/19 07/02/19 Range/Units 18:15 18:15 18:15 WBC 9.75 (4.8-10.8) K/uL RBC 5.17 (4.7-6.1) M/uL Hgb 15.5 (14.0-18.0) g/dL Hct 43.4 (42-52) % MCV 83.9 (80-100) fL MCH 30.0 (25-34) pg MCHC 35.7 (32-36) g/dL RDW Std Deviation 37.8 (36.4-46.3) fL RDW Coeff of Briana 12.5 (11.5-14.5) % Plt Count 198 (130-400) K/uL MPV 10.3 (7.4-10.4) fL Immature Gran % (Auto) 0.2 % Neut % (Auto) 75.1 % Lymph % (Auto) 16.3 % Noble % (Auto) 7.8 % Eos % (Auto) 0.5 % Baso % (Auto) 0.1 % Immature Gran # (Auto) 0.02 (0.00-0.02) K/uL Neut # (Auto) 7.32 H (1.4-6.5) K/uL Lymph # (Auto) 1.59 (1.2-3.4) K/uL Noble # (Auto) 0.76 H (0.11-0.59) K/uL Eos # (Auto) 0.05 (0-0.5) K/uL Baso # (Auto) 0.01 (0-0.2) K/uL Sodium 138 (136-145) mmol/L Potassium 3.7 (3.5-5.1) mmol/L Chloride 107 (98-107) mmol/L Carbon Dioxide 25 (21-32) mmol/L Anion Gap 6.0 (3-11) BUN 11 (7-18) mg/dl Creatinine 1.10 (0.6-1.4) mg/dl Est Cr Clr Drug Dosing 98.0 ml/min Est GFR ( Amer) 90.9 Est GFR (Non-Af Amer) 78.4 BUN/Creatinine Ratio 9.7 L (10-20) Glucose 175 H (70-99) mg/dl Calcium 9.6 (8.5-10.1) mg/dl Total Bilirubin 1.9 H (0.2-1) mg/dl AST 21 (15-37) U/L ALT 43 (12-78) U/L Alkaline Phosphatase 110 (45-117) U/L Troponin I < 0.015 (0-0.045) ng/ml Total Protein 7.7 (6.4-8.2) gm/dl Albumin 3.9 (3.4-5.0) gm/dl Globulin 3.8 (2.5-4.0) gm/dl Albumin/Globulin Ratio 1.0 (0.9-2) Lipase 83 (73-393) U/L Urine Color Urine Appearance (Clear) Urine pH (4.5-7.5) Ur Specific [place] (1.000-1.030) Urine Protein (Negative) Urine Glucose (UA) (Negative) Urine Ketones (Negative) Urine Blood (Negative) Urine Nitrite (Negative) Urine Bilirubin (Negative) Urine Urobilinogen (Negative) Ur Leukocyte Esterase (Negative) 07/02/19 Range/Units 19:45 WBC (4.8-10.8) K/uL RBC (4.7-6.1) M/uL Hgb (14.0-18.0) g/dL Hct (42-52) % MCV (80-100) fL MCH (25-34) pg MCHC (32-36) g/dL RDW Std Deviation (36.4-46.3) fL RDW Coeff of Briana (11.5-14.5) % Plt Count (130-400) K/uL MPV (7.4-10.4) fL Immature Gran % (Auto) % Neut % (Auto) % Lymph % (Auto) % Noble % (Auto) % Eos % (Auto) % Baso % (Auto) % Immature Gran # (Auto) (0.00-0.02) K/uL Neut # (Auto) (1.4-6.5) K/uL Lymph # (Auto) (1.2-3.4) K/uL Noble # (Auto) (0.11-0.59) K/uL Eos # (Auto) (0-0.5) K/uL Baso # (Auto) (0-0.2) K/uL Sodium (136-145) mmol/L Potassium (3.5-5.1) mmol/L Chloride (98-107) mmol/L Carbon Dioxide (21-32) mmol/L Anion Gap (3-11) BUN (7-18) mg/dl Creatinine (0.6-1.4) mg/dl Est Cr Clr Drug Dosing ml/min Est GFR ( Amer) Est GFR (Non-Af Amer) BUN/Creatinine Ratio (10-20) Glucose (70-99) mg/dl Calcium (8.5-10.1) mg/dl Total Bilirubin (0.2-1) mg/dl AST (15-37) U/L ALT (12-78) U/L Alkaline Phosphatase (45-117) U/L Troponin I (0-0.045) ng/ml Total Protein (6.4-8.2) gm/dl Albumin (3.4-5.0) gm/dl Globulin (2.5-4.0) gm/dl Albumin/Globulin Ratio (0.9-2) Lipase (73-393) U/L Urine Color Yellow Urine Appearance Clear (Clear) Urine pH 6.0 (4.5-7.5) Ur Specific [place] 1.027 (1.000-1.030) Urine Protein Negative (Negative) Urine Glucose (UA) Negative (Negative) Urine Ketones Trace H (Negative) Urine Blood Negative (Negative) Urine Nitrite Negative (Negative) Urine Bilirubin Negative (Negative) Urine Urobilinogen Negative (Negative) Ur Leukocyte Esterase Negative (Negative) Administered Medications Ioversol (Optiray 320 100ml) 94 ml IV ONCE PRN PRN Reason: Interaction Checking Stop: 07/06/19 20:19 Last Admin: 07/02/19 20:20 Dose: 94 ml Documented by: [id number] Discontinued Medications Sodium Chloride (Nss 1000ml) 1,000 mls @ 999 mls/hr IV .Q1H1M ONE Stop: 07/02/19 21:05 Last Infusion: 07/02/19 21:38 Dose: 0 mls/hr Documented by: [id number] Admin: 07/02/19 20:19 Dose: 999 mls/hr Documented by: [id number] Discharge Plan Visit Data Chief Complaint: Abdominal Pain Stated Complaint: SEVERE STOMACH PAIN ED Provider: Micah Matias ED Midlevel Provider: Yanely Rivera Discharge Problem: Small bowel obstruction Patient Disposition: Admitted As Inpatient Condition: Good Forms Stand Alone Forms: [employer] Prescriptions Prescriptions: No Action simvastatin 20 mg tablet 20 mg PO DAILY Qty: 90 RF: 1 glipizide 5 mg tablet 5 mg PO DAILY Qty: 90 RF: 1 Referrals Referrals: Howard Price III, CRNP [Primary Care Provider] -
[2019-07-02 20:58] LABS: Appearance Urine Clear (Clear); Bilirubin Urine Negative (Negative); Blood Urine Negative (Negative); Color Urine Yellow; Glucose Urine UA Negative (Negative); Ketones Urine Trace (Negative); Leukocyte Esterase Urine Negative (Negative); Nitrite Urine Negative (Negative); Protein Urine Negative (Negative); Specific Gravity Urine 1.027 (1.000-1.030); Urobilinogen Urine Negative (Negative)
--- NOTE | 2019-07-02 21:05 | CT Scan Report ---
CT OF THE ABDOMEN AND PELVIS WITH CONTRAST CLINICAL HISTORY: Abdominal pain and vomiting. COMPARISON STUDY: CT of the abdomen and pelvis September 18, 2016. Right upper quadrant ultrasound September 21, 2016. TECHNIQUE: Following IV administration of 94 mL of Optiray-320, axial images of the abdomen and pelvi s were obtained from the lung bases to the proximal femurs. Images were reviewed in the axial, sagitt al, and coronal planes. IV contrast was administered without complication. Automated exposure contro l was utilized for the study. A dose lowering technique was utilized adhering to the principles of A MALVIN. CT DOSE: 1314.53 mGy.cm FINDINGS: Lung bases are unremarkable. No pneumatosis, free air or portal venous gas is present. The liver, spleen, adrenal glands and pancreas are unremarkable. Bilateral renal calculi measure up to 4 mm. There is a probable 1 cm cyst within the right kidney. There are no ureteral calculi. There is no hydronephrosis. Several loops of mildly dilated proximal small bowel are noted. Transition point is noted within the posterior mid abdomen shown on axial image 246 of 461 with small bowel feces sign. T he etiology for the bowel obstruction is not clear on this examination. The appendix is normal. No ly mphadenopathy is present. No suspicious osseous lesions are present. Small fat-containing umbilical h ernia is noted. IMPRESSION: 1. Mild dilatation of the proximal small bowel with discrete transition point within the posterior mi d abdomen with decompressed distal small bowel. This represents a moderate grade small bowel obstruct ion of uncertain etiology. 2. Bilateral nephrolithiasis. ACT 112: Negative or not required by law. Electronically signed by: Garry Fitch M.D. 07/02/2019 9:04 PM
--- NOTE | 2019-07-02 22:32 | History & Physical Report ---
Date of Service July 02, 2019 Assessment & Plan (1) Small bowel obstruction: Small bowel obstruction- No significant risk factors, other than possibly some mild diabetic gastroparesis. NPO NSS + KCl 20 mEq at 100 mils per hour Zosyn 3.375 mg IV every 8 hours Famotidine 20 mg IV every 12 hours Toradol 30 mg IV every 6 hours PRN moderate pain Acetaminophen 1 g IV every 8 hours PRN mild pain and temperature Consult gastroenterology Consult general surgery Present on Admission?: Yes (2) Diabetes mellitus: Hold glipizide. Patient Accu-Cheks before meals and at bedtime with NovoLog coverage per scale Present on Admission?: Yes (3) Pure hypercholesterolemia with target low density lipoprotein (LDL) cholesterol less than 70 mg/dL: For now hold simvastatin 20 mg p.o. daily until taking orally again. Present on Admission?: Yes History of Present Illness Chief Complaint: The patient presents to the emergency department with the acute onset of severe abdominal pain along with nausea and vomiting at 4:00 this morning, and persisted throughout the day, but he was still able to go to work. Primary Care Provider: Howard Price III, CRNP The patient is a 49-year-old male with a past medical history including Gilbert's syndrome, hypercholesterolemia, obesity and diabetes mellitus. He presents to the emergency department with acute onset of severe abdominal pain, accompanied by nausea and vomiting. Work-up in the emergency department included CT scan of the abdomen pelvis which was consistent with a small bowel obstruction. Patient has no known risk factors, including no history of abdominal surgeries, severe infections or abdominal injuries. Allergies Allergy/AdvReac Type Severity Reaction Status Date / Time No Known Drug Allergies Allergy Verified 07/02/19 23:00 Home Medications Home Medications Medication Instructions Recorded Confirmed Type glipizide 5 mg tablet 5 mg PO DAILY #90 tab 03/13/19 07/02/19 Rx simvastatin 20 mg tablet 20 mg PO DAILY #90 tab 05/30/19 07/02/19 Rx Past Med/Surg History Social History Preferred Language: Lao Communication Ability: Effective Visual Impairment: No Limitations Hearing Ability: Normal Boat Cleaner Required: No Beliefs That Will Affect Care: None marital status: Current Living Situation: Spouse current occupational status: employed 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 Feels Safe at Home: Yes Smoking Status: Never smoker Hx Alcohol Use: No Hx Substance Use: No Childhood Exposure to Second-Hand Smoke: No Dental Care, Regularly: Yes Physical Activity Frequency: Does not Exercise Seatbelt Use: always Sunscreen Use: Yes Review of Systems Review of Systems: The patient denies chest pain, palpitations, shortness of breath, dyspnea on exertion, cough, lower extremity swelling, sore throat, fevers, chills, sweats, diarrhea or constipation, Blood in urine or stool, dysuria, urinary frequency or urgency, lightheadedness, dizziness, headache, memory loss, loss of consciousness, rash, abnormal bruising or bleeding, imbalance, focal or generalized weakness, numbness or tingling in arms or legs, generalized arthralgias or myalgias, back or neck pain, or night sweats. The review of systems is otherwise negative other than for that already noted above, and at least 10 systems have been reviewed. Physical Exam Physical Exam: The patient is awake, alert and oriented 3, well developed and well nourished, normocephalic and atraumatic, lying in bed and in no acute distress. HEENT--PERRL, EOMI, mucous membranes and oropharynx dry. Neck--supple. No JVD. No bruits. Thyroid normal, trachea midline, no adenopathy. Heart--normal S1 and S2. No murmurs, rubs or gallops. Lungs--clear bilaterally, no respiratory distress, no accessory muscle use. Abdomen--minimal bowel sounds and soft. Generalized mild tenderness, mild tympany. Extremities--no cyanosis or clubbing. No edema. Dermatologic--normal skin turgor, normal color, no abnormal lymph nodes, no rash. Neurologic--cranial nerves II through XII grossly intact. Rheumatologic--normal range of motion. Psychiatric--normal affect. Results & Data Vital Signs (Past 12 Hours) Vital Signs Temp Pulse Pulse Resp BP BP Pulse Ox 07/02/19 21:51 81 18 143/91 H 93 07/02/19 20:48 80 18 170/94 H 98 07/02/19 19:43 85 18 144/103 H 97 07/02/19 17:34 97.3 F L 84 16 156/81 H 98 Laboratory Results Laboratory Results WBC 9.75 K/uL (4.8-10.8) 07/02/19 18:15 RBC 5.17 M/uL (4.7-6.1) 07/02/19 18:15 Hgb 15.5 g/dL (14.0-18.0) 07/02/19 18:15 Hct 43.4 % (42-52) 07/02/19 18:15 MCV 83.9 fL (80-100) 07/02/19 18:15 MCH 30.0 pg (25-34) 07/02/19 18:15 MCHC 35.7 g/dL (32-36) 07/02/19 18:15 RDW Std Deviation 37.8 fL (36.4-46.3) 07/02/19 18:15 RDW Coeff of Briana 12.5 % (11.5-14.5) 07/02/19 18:15 Plt Count 198 K/uL (130-400) 07/02/19 18:15 MPV 10.3 fL (7.4-10.4) 07/02/19 18:15 Immature Gran % (Auto) 0.2 % 07/02/19 18:15 Neut % (Auto) 75.1 % 07/02/19 18:15 Lymph % (Auto) 16.3 % 07/02/19 18:15 [place] % (Auto) 7.8 % 07/02/19 18:15 Eos % (Auto) 0.5 % 07/02/19 18:15 Baso % (Auto) 0.1 % 07/02/19 18:15 Immature Gran # (Auto) 0.02 K/uL (0.00-0.02) 07/02/19 18:15 Neut # (Auto) 7.32 K/uL (1.4-6.5) H 07/02/19 18:15 Lymph # (Auto) 1.59 K/uL (1.2-3.4) 07/02/19 18:15 [place] # (Auto) 0.76 K/uL (0.11-0.59) H 07/02/19 18:15 Eos # (Auto) 0.05 K/uL (0-0.5) 07/02/19 18:15 Baso # (Auto) 0.01 K/uL (0-0.2) 07/02/19 18:15 Sodium 138 mmol/L (136-145) 07/02/19 18:15 Potassium 3.7 mmol/L (3.5-5.1) 07/02/19 18:15 Chloride 107 mmol/L (98-107) 07/02/19 18:15 Carbon Dioxide 25 mmol/L (21-32) 07/02/19 18:15 Anion Gap 6.0 (3-11) 07/02/19 18:15 BUN 11 mg/dl (7-18) 07/02/19 18:15 Creatinine 1.10 mg/dl (0.6-1.4) 07/02/19 18:15 Est Cr Clr Drug Dosing 98.0 ml/min 07/02/19 18:15 Est GFR ( Amer) 90.9 07/02/19 18:15 Est GFR (Non-Af Amer) 78.4 07/02/19 18:15 BUN/Creatinine Ratio 9.7 (10-20) L 07/02/19 18:15 Glucose 175 mg/dl (70-99) H 07/02/19 18:15 Calcium 9.6 mg/dl (8.5-10.1) 07/02/19 18:15 Total Bilirubin 1.9 mg/dl (0.2-1) H 07/02/19 18:15 AST 21 U/L (15-37) 07/02/19 18:15 ALT 43 U/L (12-78) 07/02/19 18:15 Alkaline Phosphatase 110 U/L (45-117) 07/02/19 18:15 Troponin I < 0.015 ng/ml (0-0.045) 07/02/19 18:15 Total Protein 7.7 gm/dl (6.4-8.2) 07/02/19 18:15 Albumin 3.9 gm/dl (3.4-5.0) 07/02/19 18:15 Globulin 3.8 gm/dl (2.5-4.0) 07/02/19 18:15 Albumin/Globulin Ratio 1.0 (0.9-2) 07/02/19 18:15 Lipase 83 U/L (73-393) 07/02/19 18:15 Urine Color Yellow 07/02/19 19:45 Urine Appearance Clear (Clear) 07/02/19 19:45 Urine pH 6.0 (4.5-7.5) 07/02/19 19:45 Ur Specific [place] 1.027 (1.000-1.030) 07/02/19 19:45 Urine Protein Negative (Negative) 07/02/19 19:45 Urine Glucose (UA) Negative (Negative) 07/02/19 19:45 Urine Ketones Trace (Negative) H 07/02/19 19:45 Urine Blood Negative (Negative) 07/02/19 19:45 Urine Nitrite Negative (Negative) 07/02/19 19:45 Urine Bilirubin Negative (Negative) 07/02/19 19:45 Urine Urobilinogen Negative (Negative) 07/02/19 19:45 Ur Leukocyte Esterase Negative (Negative) 07/02/19 19:45 Diagnostic Findings [place], [place] [phone] CT Scan Report Patient: TYRON FLORES Date: 07/02/19 MR#: [id number]: [address] Acct ID:[id number]: Date: 1970City Zip: [place] [address] Age: 49Location: ED Sex: M Room/Bed: Att Phy:Diagnosis: SEVERE STOMACH PAIN Negar Phy: Howard Price III, BOBBYervice Date: 07/02/19 Fam Phy:Interpreting Phy: Garry Fitch MD Admit Phy: Ordering Phy: Yanely Rivera CRNP cc: ~ CT OF THE ABDOMEN AND PELVIS WITH CONTRAST CLINICAL HISTORY: Abdominal pain and vomiting. COMPARISON STUDY: CT of the abdomen and pelvis September 18, 2016. Right upper quadrant ultrasound September 21, 2016. TECHNIQUE: Following IV administration of 94 mL of Optiray-320, axial images of the abdomen and pelvis were obtained from the lung bases to the proximal femurs. Images were reviewed in the axial, sagittal, and coronal planes. IV contrast was administered without complication. Automated exposure control was utilized for the study. A dose lowering technique was utilized adhering to the principles of ALARA. CT DOSE: 1314.53 mGy.cm FINDINGS: Lung bases are unremarkable. No pneumatosis, free air or portal venous gas is present. The liver, spleen, adrenal glands and pancreas are unremarkable. Bilateral renal calculi measure up to 4 mm. There is a probable 1 cm cyst within the right kidney. There are no ureteral calculi. There is no hydronephrosis. Several loops of mildly dilated proximal small bowel are noted. Transition point is noted within the posterior mid abdomen shown on axial image 246 of 461 with small bowel feces sign. The etiology for the bowel obstruction is not clear on this examination. The appendix is normal. No lymphadenopathy is present. No suspicious osseous lesions are present. Small fat-containing umbilical hernia is noted. IMPRESSION: 1. Mild dilatation of the proximal small bowel with discrete transition point within the posterior mid abdomen with decompressed distal small bowel. This represents a moderate grade small bowel obstruction of uncertain etiology. 2. Bilateral nephrolithiasis. ACT 112: Negative or not required by law. Electronically signed by: Garry Fitch M.D. 07/02/2019 9:04 PM Dictated: 07/02/192057 Transcribed: 07/02/192057 Code Status & VTE Plan Code Status Full code VTE Prophylaxis Plan VTE Prophylaxis will be ordered: Yes PG Care Time/CCT Total # of Minutes Spent Total Time Spent with Patient: Total time spent is greater than 50% in coordination of care (as documented) at patient's floor/unit and/or counseling patient: Coding Level of Care Code 07122 Initial Inpt Care Lvl 2 Diagnoses Small bowel obstruction K56.609 Diabetes mellitus E11.9 Pure hypercholesterolemia with target low density lipoprotein (LDL) cholesterol less than 70 mg/dL E78.00
[2019-07-03] MEDS ORDERED: KETOROLAC 30 MG/ML VIAL IV PRN (00:02)
[2019-07-03] MEDS ORDERED: ONDANSETRON INJ 2 MG/ML 2 ML VIAL IV PRN (00:02)
[2019-07-03] MEDS ORDERED: ACETAMINOPHEN 1,000 MG/100 ML VIAL IV PRN (00:02)
[2019-07-03] MEDS: NSS + 20MEQ KCL 20 MEQ/1,000 ML BAG IV SCH ×2 (00:38→10:40)
[2019-07-03] MEDS: FAMOTIDINE 20 MG in SYRINGE 3 ML IV SCH ×3 (01:01→20:49)
[2019-07-03] MEDS ORDERED: PIPERACILL/TAZOBAC CONSULT ACTIVE PRN (05:50)
[2019-07-03] MEDS ORDERED: PIPERACILLIN/TAZOBACTAM 3.375 GM in DEXTROSE 5% 100 ML IV SCH (06:00)
[2019-07-03] MEDS ORDERED: PIPERACILLIN/TAZOBACTAM 4.5 GM in DEXTROSE 5% 100 ML IV ONE (06:30)
--- NOTE | 2019-07-03 08:57 | Surgery Consultation ---
Date of Consultation July 03, 2019 Assessment & Plan (1) Small bowel obstruction: Etiology unclear His pain has resolved and now having positive bowel function ? gastroenteritis vs SBO No leukocytosis Plan: Discussed with patient etiology of SBO including adhesions, intraluminal mass, internal hernia ,vs wall thickening from acute/chronic inflammation causing narrowing of lumen. Etiology unknown at this time. Will need outpatient GI follow-up. No surgical intervention required at this time Okay to advance to clear liquids, advised patient to go slowly. Continue current medical management advised to ambulate hallway Dr. Kirkpatrick has seen and examined pt, agrees with above. History of Present Illness Reason for Consultation: SBO Requesting Physician: Johnie Parkinson MD Attending Physician: Johnie Parkinson MD History of Present Illness Alexis is a 49 year-old male who presented to emergency department last evening with complaint of abdominal pain that started at 4 am yesterday morning. Pain woke him up multiple times throughout the night. Sharp and severe at times up to 9/10 pain and then dull cramping pain 2/10. Pain worse after eating as well. Vomiting x 2 due to pain. No baseline nausea. Never had this type of pain before. Normal bowel movement yesterday afternoon. No diarrhea. No one else at home has been sick. In normal state of health prior to yesterday morning. No prior history of SBO or abdominal surgeries. No family history of inflammatory bowel disease or colon cancer. Never had colonoscopy or EGD. Labs showed no leukocytosis, H&H stable. T. bili elevated but LFTS wnl. Since admission Alexis states he is feeling much better. His pain resolved around 4 am this morning. No nausea or vomiting. Has had two liquid bowel movements and passing gas. Allergies Allergy/AdvReac Type Severity Reaction Status Date / Time No Known Drug Allergies Allergy Verified 07/02/19 23:00 Home Medications Home Medications Medication Instructions Recorded Confirmed Type glipizide 5 mg tablet 5 mg PO DAILY #90 tab 03/13/19 07/02/19 Rx simvastatin 20 mg tablet 20 mg PO DAILY #90 tab 05/30/19 07/02/19 Rx Patient History Medical History Diabetes mellitus [place] syndrome (Acute) Pure hypercholesterolemia with target low density lipoprotein (LDL) cholesterol less than 70 mg/dL (Acute 01/11/12) Ureteral calculus, right (Resolved) Surgical History No history of previous surgery Family History Father Diabetes Grandfather Diabetes Myocardial infarction Unknown Breast cancer Myocardial infarction Mother Breast cancer Denies family history of Ovarian cancer Prostate cancer Colorectal cancer Social History Preferred Language: [place] Communication Ability: Effective Visual Impairment: No Limitations Hearing Ability: Normal Flight Operation Coordinator Required: No Beliefs That Will Affect Care: None marital status: Current Living Situation: Spouse current occupational status: employed 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 Feels Safe at Home: Yes Smoking Status: Never smoker Hx Alcohol Use: No Hx Substance Use: No Childhood Exposure to Second-Hand Smoke: No Dental Care, Regularly: Yes Physical Activity Frequency: Does not Exercise Seatbelt Use: always Sunscreen Use: Yes Review of Systems Review of Systems: All systems reviewed & are unremarkable except as noted in HPI & below Physical Exam Constitutional: WD/WN, vitals as above no acute distress Respiratory: normal respiratory effort, lungs clear to auscultation Cardiovascular: RRR, no murmur, no edema Gastrointestinal (Abdomen): Inspection/Auscultation: abdomen normal to inspection; abdomen not distended and + abnormal bowel sounds (hypoactive) Percussion/Palpation: abdomen soft; abdomen nontender, no guarding and abdomen not rigid Skin: no rashes, warm and dry Psychiatric: A+Ox3, euthymic affect Results & Data Vital Signs (Past 12 Hours) Vital Signs Temp Pulse Pulse Pulse Resp BP BP 07/03/19 07:16 36.8 C 75 19 128/79 07/02/19 23:51 83 20 135/83 07/02/19 23:50 37 C 82 16 137/78 07/02/19 22:00 68 20 07/02/19 21:51 81 18 143/91 H Pulse Ox 07/03/19 07:16 96 07/02/19 23:51 94 07/02/19 23:50 93 07/02/19 22:00 07/02/19 21:51 93 Laboratory Results 07/02/19 07/02/19 07/02/19 Range/Units 19:45 18:15 18:15 WBC (4.8-10.8) K/uL RBC (4.7-6.1) M/uL Hgb (14.0-18.0) g/dL Hct (42-52) % MCV (80-100) fL MCH (25-34) pg MCHC (32-36) g/dL RDW Std Deviation (36.4-46.3) fL RDW Coeff of Briana (11.5-14.5) % Plt Count (130-400) K/uL MPV (7.4-10.4) fL Immature Gran % (Auto) % Neut % (Auto) % Lymph % (Auto) % [place] % (Auto) % Eos % (Auto) % Baso % (Auto) % Immature Gran # (Auto) (0.00-0.02) K/uL Neut # (Auto) (1.4-6.5) K/uL Lymph # (Auto) (1.2-3.4) K/uL [place] # (Auto) (0.11-0.59) K/uL Eos # (Auto) (0-0.5) K/uL Baso # (Auto) (0-0.2) K/uL Sodium 138 (136-145) mmol/L Potassium 3.7 (3.5-5.1) mmol/L Chloride 107 (98-107) mmol/L Carbon Dioxide 25 (21-32) mmol/L Anion Gap 6.0 (3-11) BUN 11 (7-18) mg/dl Creatinine 1.10 (0.6-1.4) mg/dl Est Cr Clr Drug Dosing 98.0 ml/min Est GFR ( Amer) 90.9 Est GFR (Non-Af Amer) 78.4 BUN/Creatinine Ratio 9.7 L (10-20) Glucose 175 H (70-99) mg/dl Calcium 9.6 (8.5-10.1) mg/dl Total Bilirubin 1.9 H (0.2-1) mg/dl AST 21 (15-37) U/L ALT 43 (12-78) U/L Alkaline Phosphatase 110 (45-117) U/L Troponin I < 0.015 (0-0.045) ng/ml Total Protein 7.7 (6.4-8.2) gm/dl Albumin 3.9 (3.4-5.0) gm/dl Globulin 3.8 (2.5-4.0) gm/dl Albumin/Globulin Ratio 1.0 (0.9-2) Lipase 83 (73-393) U/L Urine Color Yellow Urine Appearance Clear (Clear) Urine pH 6.0 (4.5-7.5) Ur Specific [place] 1.027 (1.000-1.030) Urine Protein Negative (Negative) Urine Glucose (UA) Negative (Negative) Urine Ketones Trace H (Negative) Urine Blood Negative (Negative) Urine Nitrite Negative (Negative) Urine Bilirubin Negative (Negative) Urine Urobilinogen Negative (Negative) Ur Leukocyte Esterase Negative (Negative) 07/02/19 Range/Units 18:15 WBC 9.75 (4.8-10.8) K/uL RBC 5.17 (4.7-6.1) M/uL Hgb 15.5 (14.0-18.0) g/dL Hct 43.4 (42-52) % MCV 83.9 (80-100) fL MCH 30.0 (25-34) pg MCHC 35.7 (32-36) g/dL RDW Std Deviation 37.8 (36.4-46.3) fL RDW Coeff of Briana 12.5 (11.5-14.5) % Plt Count 198 (130-400) K/uL MPV 10.3 (7.4-10.4) fL Immature Gran % (Auto) 0.2 % Neut % (Auto) 75.1 % Lymph % (Auto) 16.3 % [place] % (Auto) 7.8 % Eos % (Auto) 0.5 % Baso % (Auto) 0.1 % Immature Gran # (Auto) 0.02 (0.00-0.02) K/uL Neut # (Auto) 7.32 H (1.4-6.5) K/uL Lymph # (Auto) 1.59 (1.2-3.4) K/uL [place] # (Auto) 0.76 H (0.11-0.59) K/uL Eos # (Auto) 0.05 (0-0.5) K/uL Baso # (Auto) 0.01 (0-0.2) K/uL Sodium (136-145) mmol/L Potassium (3.5-5.1) mmol/L Chloride (98-107) mmol/L Carbon Dioxide (21-32) mmol/L Anion Gap (3-11) BUN (7-18) mg/dl Creatinine (0.6-1.4) mg/dl Est Cr Clr Drug Dosing ml/min Est GFR ( Amer) Est GFR (Non-Af Amer) BUN/Creatinine Ratio (10-20) Glucose (70-99) mg/dl Calcium (8.5-10.1) mg/dl Total Bilirubin (0.2-1) mg/dl AST (15-37) U/L ALT (12-78) U/L Alkaline Phosphatase (45-117) U/L Troponin I (0-0.045) ng/ml Total Protein (6.4-8.2) gm/dl Albumin (3.4-5.0) gm/dl Globulin (2.5-4.0) gm/dl Albumin/Globulin Ratio (0.9-2) Lipase (73-393) U/L Urine Color Urine Appearance (Clear) Urine pH (4.5-7.5) Ur Specific [place] (1.000-1.030) Urine Protein (Negative) Urine Glucose (UA) (Negative) Urine Ketones (Negative) Urine Blood (Negative) Urine Nitrite (Negative) Urine Bilirubin (Negative) Urine Urobilinogen (Negative) Ur Leukocyte Esterase (Negative) Diagnostic Findings CT OF THE ABDOMEN AND PELVIS WITH CONTRAST CLINICAL HISTORY: Abdominal pain and vomiting. COMPARISON STUDY: CT of the abdomen and pelvis September 18, 2016. Right upper quadrant ultrasound September 21, 2016. TECHNIQUE: Following IV administration of 94 mL of Optiray-320, axial images of the abdomen and pelvis were obtained from the lung bases to the proximal femurs. Images were reviewed in the axial, sagittal, and coronal planes. IV contrast was administered without complication. Automated exposure control was utilized for the study. A dose lowering technique was utilized adhering to the principles of ALARA. CT DOSE: 1314.53 mGy.cm FINDINGS: Lung bases are unremarkable. No pneumatosis, free air or portal venous gas is present. The liver, spleen, adrenal glands and pancreas are unremarkable. Bilateral renal calculi measure up to 4 mm. There is a probable 1 cm cyst within the right kidney. There are no ureteral calculi. There is no hydronephrosis. Several loops of mildly dilated proximal small bowel are noted. Transition point is noted within the posterior mid abdomen shown on axial image 246 of 461 with small bowel feces sign. The etiology for the bowel obstruction is not clear on this examination. The appendix is normal. No lymphadenopathy is present. No suspicious osseous lesions are present. Small fat-containing umbilical hernia is noted. IMPRESSION: 1. Mild dilatation of the proximal small bowel with discrete transition point within the posterior mid abdomen with decompressed distal small bowel. This represents a moderate grade small bowel obstruction of uncertain etiology. 2. Bilateral nephrolithiasis.
--- NOTE | 2019-07-03 09:27 | Gastrointestinal Consultation ---
Date of Consultation July 03, 2019 Assessment & Plan (1) Small bowel obstruction: Diff dx: acute vs chronic inflammatory change vs dysmotility vs mass vs other. 1. Seen at the bedside with Fatmata Oseguera PA-C. Surgery to recommend dietary advancement to clear liquids as clinically improved and passing bms/flatus. 2. If returning symptoms of n/v or abdominal pain, consider returning to NPO status with NG insertion, serum lactate and abdominal series. 3. Continue antibiotics as per primary team. 4. Will plan for outpatient EGD and colonoscopy to exclude any pathologic etiologies. Patient is agreeable to this plan. 5. Continue supportive care. If you have any questions or concerns, please do not hesitate to contact us. Thank you for allowing us to participate in the care of this patient. Supervising Physician Co-Signing Physician Notes I personally evaluated the patient and agree with the findings as documented by ISABEL Garland Exam: abd: obese, soft, nt, nd will schedule for outpatient EGD and colonoscopy to further evaluate 4-6 weeks from now. History of Present Illness Reason for Consultation: SBO Requesting Physician: Dr. Zendejas Attending Physician: Johnie Parkinson MD History of Present Illness Patient is a very pleasant 49 year-old male with a history of DM2, HLD, Gilbert's and obesity admitted with acute LUQ abdominal paid with associated nausea and vomiting as well as abnormal CT imaging consistent with a proximal small bowel obstruction with discrete transition point and associated small bowel dilation. He has no history of prior abdominal surgeries. Denies any routine NSAID use, new medications over the past few weeks, or history of PICA. Family history is negative for Celiac sprue, IBD and GI malignancy. Labs on arrival include a white blood cell count of 9.75, hemoglobin 15.5, hematocrit 43.4%, sodium 138, potassium 3.7, BUN 11, creatinine 1.10, TB 1.9, AST 21, ALT 43, ALP 110, and lipase 83. Currently, the patient reports resolution of symptoms. He has passed two bowel movements this morning and is passing flatus. Denies any abdominal pain, nausea or vomiting, fevers or chills, chest pain or shortness of breath. No reports of bloody or black stools, hematemesis, arthralgias, myalgias, skin rashes, eye pain/redness or fatigue. Allergies Allergy/AdvReac Type Severity Reaction Status Date / Time No Known Drug Allergies Allergy Verified 07/02/19 23:00 Home Medications Home Medications Medication Instructions Recorded Confirmed Type glipizide 5 mg tablet 5 mg PO DAILY #90 tab 03/13/19 07/02/19 Rx simvastatin 20 mg tablet 20 mg PO DAILY #90 tab 05/30/19 07/02/19 Rx Patient History Medical History Diabetes mellitus [place] syndrome (Acute) Pure hypercholesterolemia with target low density lipoprotein (LDL) cholesterol less than 70 mg/dL (Acute 01/11/12) Ureteral calculus, right (Resolved) Surgical History No history of previous surgery Family History Father Diabetes Grandfather Diabetes Myocardial infarction Unknown Breast cancer Myocardial infarction Mother Breast cancer Denies family history of Ovarian cancer Prostate cancer Colorectal cancer Social History Preferred Language: Turkish Communication Ability: Effective Visual Impairment: No Limitations Hearing Ability: Normal Beverage Inspection Machine Tender Required: No Beliefs That Will Affect Care: None marital status: Current Living Situation: Spouse current occupational status: employed 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 Feels Safe at Home: Yes Smoking Status: Never smoker Hx Alcohol Use: No Hx Substance Use: No Childhood Exposure to Second-Hand Smoke: No Dental Care, Regularly: Yes Physical Activity Frequency: Does not Exercise Seatbelt Use: always Sunscreen Use: Yes Review of Systems Review of Systems: All systems reviewed & are unremarkable except as noted in HPI & below Physical Exam Constitutional: WD/WN, vitals as above Eyes: EOM intact bilaterally Neck: normal appearance Respiratory: normal respiratory effort, lungs clear to auscultation Cardiovascular: Rate/Rhythm: regular rate and regular rhythm Heart Sounds: no gallop and no murmur Gastrointestinal (Abdomen): Inspection/Auscultation: normal bowel sounds and + hypoactive bowel sounds Percussion/Palpation: + abdomen tender (bilateral upper quadrants) and abdomen soft Musculoskeletal: Extremities: no cyanosis no lower extremity edema Skin: no rashes, warm and dry Neurologic: moves all extremities Psychiatric: A+Ox3, euthymic affect Results & Data ([facility]) Vital Signs (Past 12 Hours) Vital Signs Temp Pulse Pulse Pulse Resp BP BP 07/03/19 07:16 36.8 C 75 19 128/79 07/02/19 23:51 83 20 135/83 07/02/19 23:50 37 C 82 16 137/78 07/02/19 22:00 68 20 07/02/19 21:51 81 18 143/91 H Pulse Ox 07/03/19 07:16 96 07/02/19 23:51 94 07/02/19 23:50 93 07/02/19 22:00 07/02/19 21:51 93 PG Care Time/CCT Total # of Minutes Spent Total Time Spent with Patient: Total time spent is greater than 50% in coordination of care (as documented) at patient's floor/unit and/or counseling patient: Coding Level of Care Code 78902 Inpt Consult Level 4 Diagnoses Small bowel obstruction K56.609
--- NOTE | 2019-07-03 10:40 | Electrocardiogram Report ---
Test Reason : Blood Pressure : / mmHG Vent. Rate : 088 BPM Atrial Rate : 088 BPM P-R Int : 172 ms QRS Dur : 078 ms QT Int : 354 ms P-R-T Axes : 013 -08 -13 degrees QTc Int : 428 ms Normal sinus rhythm with sinus arrhythmia Nonspecific ST and T wave abnormality Abnormal ECG When compared with ECG of 11-OCT-1998 17:02, No significant change was found Confirmed by Micah Beck ([id number]) on 07/03/2019 10:40:17 AM Referred By: REFERRED SELF Confirmed By:Micah Beck
--- NOTE | 2019-07-03 11:14 | Hospitalist Progress Note ---
Date of Service July 03, 2019 Assessment & Plan (1) Small bowel obstruction: Zosyn 3.375 mg IV every 8 hours Famotidine 20 mg IV every 12 hours Toradol 30 mg IV every 6 hours PRN moderate pain Acetaminophen 1 g IV every 8 hours PRN mild pain and temperature Consulted gastroenterology and general surgery - no need for surgery now as patient is having bowel movements. Advance to clears. Will need outpatient EGD and colonoscopy (2) Diabetes mellitus: Hold glipizide. Bsgs ac & hs with coverage (3) Pure hypercholesterolemia with target low density lipoprotein (LDL) cholesterol less than 70 mg/dL: Resume simvastatin 20 mg p.o. daily Admission and Anticipated Discharge Date Admission Date: July 02, 2019 Anticipated discharge 07/03 or 07/04 Results & Data ([facility]) Vital Signs (Past 12 Hours) Vital Signs Temp Pulse Pulse Resp BP BP Pulse Ox 07/03/19 07:16 36.8 C 75 19 128/79 96 07/02/19 23:51 83 20 135/83 94 07/02/19 23:50 37 C 82 16 137/78 93 PG Care Time/CCT Total # of Minutes Spent Total Time Spent with Patient: Total time spent is greater than 50% in coordination of care (as documented) at patient's floor/unit and/or counseling patient: Coding Level of Care Code 12728 Subseq Hosp Care Lvl 2 Diagnoses Small bowel obstruction K56.609 Diabetes mellitus E11.9 Pure hypercholesterolemia with target low density lipoprotein (LDL) cholesterol less than 70 mg/dL E78.00
[2019-07-03] MEDS ORDERED: GLUCOSE 40% GEL 15 GM TUBE PO PRN (11:15)
[2019-07-03] MEDS ORDERED: GLUCOSE 10 TABS/TUBE PO PRN (11:15)
[2019-07-03] MEDS ORDERED: DEXTROSE 50% 50 ML SYRINGE IV PRN (11:15)
[2019-07-03] MEDS ORDERED: CARBOHYDRATES FOR HYPOGLYCEMIA PO PRN (11:15)
[2019-07-03] MEDS ORDERED: GLUCAGON FOR INJ 1 MG VIAL SQ PRN (11:15)
[2019-07-03] MEDS: PIPERACILLIN/TAZOBACTAM 4.5 GM in DEXTROSE 5% 100 ML IV SCH ×2 (11:33→20:25)
[2019-07-03] MEDS: INSULIN ASPART 100 UNITS/ML 3 ML PEN SC SCH ×3 (12:23→21:14)
[2019-07-04] MEDS: PIPERACILLIN/TAZOBACTAM 4.5 GM in DEXTROSE 5% 100 ML IV SCH (04:51)
[2019-07-04 08:23] LABS: Basophils # (auto) 0.01 K/uL (0-0.2); Basophils % (auto) 0.1 %; Eosinophils % (auto) 1.4 %; Hematocrit (blood only) 41.8 % (42-52); Hemoglobin 14.2 g/dL (14.0-18.0); Immature Granulocytes # (auto) 0.01 K/uL (0.00-0.02); Immature Granulocytes % (auto) 0.1 %; Lymphocytes # (auto) 1.52 K/uL (1.2-3.4); Lymphocytes % (auto) 21.3 %; Mean Corpuscular Hemoglobin 29.3 pg (25-34); Mean Corpuscular Volume 86.4 fL (80-100); Mean Platelet Volume 9.9 fL (7.4-10.4); Monocytes # (auto) 0.61 K/uL (0.11-0.59); Monocytes % (auto) 8.5 %; Neutrophils % (auto) 68.6 %; Platelet Count 198 K/uL (130-400); RDW Coefficient of Variation 12.7 % (11.5-14.5); RDW Standard Deviation 40.3 fL (36.4-46.3); Red Blood Count 4.84 M/uL (4.7-6.1); White Blood Count 7.15 K/uL (4.8-10.8)
[2019-07-04] MEDS: INSULIN ASPART 100 UNITS/ML 3 ML PEN SC SCH (08:38)
[2019-07-04] MEDS: FAMOTIDINE 20 MG in SYRINGE 3 ML IV SCH (08:42)
[2019-07-04 08:56] LABS: Calcium 8.9 mg/dl (8.5-10.1); Creatinine Clr Calc Pharmacy 97.1 ml/min; Est GFR (African American) 89.9; Est GFR (Non-African American) 77.6; Potassium 3.7 mmol/L (3.5-5.1)
--- NOTE | 2019-07-04 09:02 | Discharge Summary ---
Date of Service July 04, 2019 Admission HPI Per Admitting Provider The patient is a 49-year-old male with a past medical history including Gilbert's syndrome, hypercholesterolemia, obesity and diabetes mellitus. He presents to the emergency department with acute onset of severe abdominal pain, accompanied by nausea and vomiting. Work-up in the emergency department included CT scan of the abdomen pelvis which was consistent with a small bowel obstruction. Patient has no known risk factors, including no history of abdominal surgeries, severe infections or abdominal injuries. Principal Diagnosis Small bowel obstruction Discharge Exam Constitutional WD/WN, vitals as above Respiratory normal respiratory effort, lungs clear to auscultation Cardiovascular RRR, no murmur, no edema Gastrointestinal (Abdomen) Inspection/Auscultation: abdomen normal to inspection and normal bowel sounds; abdomen not distended Musculoskeletal no cyanosis or clubbing, extremities motor strength 5/5 Skin no rashes, warm and dry Neurologic moves all extremities and awake Psychiatric A+Ox3, euthymic affect Discharge Data Allergies Allergy/AdvReac Type Severity Reaction Status Date / Time No Known Drug Allergies Allergy Verified 07/02/19 23:00 Consultations 07/02/19 21:24 ED Decision to Admit Stat 07/03/19 00:02 Consult Case Management - Discharge Planning Routine Consult Gastroenterology Routine Consult General Surgery Routine Ordered Studies 07/02/19 20:05 CT abd pelvis IV con only Stat Hospital Course (1) Small bowel obstruction: Provided Zosyn 3.375 mg IV every 8 hours - will discontinue CT A/P could not determine etiology of obstruction Today eating normal diet, having loose stools that are slowing down from yesterday. No leukocytosis, afebrile Consulted gastroenterology and general surgery - no need for surgery now as patient is having bowel movements. Will need outpatient EGD and colonoscopy (2) Diabetes mellitus: resume glipizide for home (3) Pure hypercholesterolemia with target low density lipoprotein (LDL) choleste rol less than 70 mg/dL: Resume simvastatin 20 mg p.o. daily Total Time Total Time Spent Total Time Spent (In Minutes): greater than 30 minutes Discharge Plan Discharge Items Patient Disposition: Home - Self-Care Reason For Visit: SBO Discharge Diagnosis: Small bowel obstruction Condition on Discharge: Good Activity: Resume your previous activity Non-emergency contact: Primary Care Provider Call non-emergency contact if: you have any medication questions, your symptoms worsen, your pain is not controlled and you have a fever Follow-up/Referrals: Rob Amor, [Physician] - (Will need to follow up in 1-2 weeks ) Howard Price III, CRNP [Primary Care Provider] - (Follow up one week ) Diet: Carb Consistent or DM2 Addtl Attending Provider Instructions: (1) Small bowel obstruction: You will need to follow up with gastroenterology for an outpatient endoscopy and colonoscopy as the source of the obstruction is unclear Please let your doctor know if you start to have increasing loose stools. (2) Diabetes mellitus: Resume your home regimen (3) Pure hypercholesterolemia with target low density lipoprotein (LDL) cholesterol less than 70 mg/dL: Continue simvastatin 20 mg p.o. daily Pending Studies at Discharge: No Stand-Alone Forms: My [place], Smoking Cessation Medications and DC Order Prescriptions: Continued simvastatin 20 mg tablet 20 mg PO DAILY Qty: 90 RF: 1 glipizide 5 mg tablet 5 mg PO DAILY Qty: 90 RF: 1 Discharge Orders: Discharge Order (Routine); Ordered 07/04/19 Ordered By: Yanely Phelps/Other Patient Handouts: Hyperglycemia, Hypoglycemia, Blood Sugar Check, Diabetes Healthy Meals, Diabetes Exercise Benefits Admission Data Admit Date/Time: 07/02/19 22:31 Attending Provider: Johnie Parkinson Admit Provider: Tr Zendejas Primary Care Provider: Howard Price III Other Providers: Rob Amor ; Maximilian Gonzlaez ; Johnie Parkinson Other Interventions: Discharge Summary Assessment (RN) Last Done: 07/04/19 08:50 Coding Level of Care Code D/C Day Management >30 mins Diagnoses Small bowel obstruction K56.609 Diabetes mellitus E11.9 Pure hypercholesterolemia with target low density lipoprotein (LDL) cholesterol less than 70 mg/dL E78.00
--- NOTE | 2019-07-04 09:47 | Gastroenterology Progress Note ---
Date of Service July 04, 2019 Assessment & Plan (1) Small bowel obstruction: Diff dx: acute vs chronic inflammatory change vs dysmotility vs mass vs other. 1. Patient is now asymptomatic and tolerating a regular diet. 2. Stable for discharge from GI perspective. 3. EGD and colonoscopy have been scheduled for 09/18/2019. Patient is aware of date. 4. Follow up in the office upon completion of endoscopic work up or sooner if new or returning symptoms. If you have any questions or concerns, please do not hesitate to contact us. Thank you for allowing us to participate in the care of this patient. Admission and Anticipated Discharge Date Admission Date: July 02, 2019 Supervising Physician Co-Signing Physician Notes patient was discharged before I was able to see him. Otherwise agree with the plan as documented by Delfina Mckinney. Subjective Patient reports he is feeling well and verbalizes desire for discharge today. He has not had any returning abdominal pain, n/v, f/c or overt GIB sx. States he did have a bm this morning. Tolerating a regular diet. Review of Systems Constitutional: as per Subjective / HPI Respiratory: no problem reported Cardiovascular: no problem reported Gastrointestinal: as per Subjective / HPI Psychiatric: no problem reported Physical Exam Constitutional: WD/WN, vitals as above Neck: normal visual inspection Respiratory: normal respiratory effort, lungs clear to auscultation Cardiovascular: Rate/Rhythm: regular rate and regular rhythm Gastrointestinal (Abdomen): normal bowel sounds, soft, nontender, no hepatosplenomegaly Psychiatric: A+Ox3, euthymic affect Results & Data ([facility]) Vital Signs (Past 12 Hours) Vital Signs Temp Pulse Pulse Pulse Resp BP Pulse Ox 07/04/19 08:50 36.6 C 68 66 76 19 128/79 96 07/04/19 07:16 36.6 C 66 19 128/79 96 07/03/19 22:56 36.8 C 76 16 128/78 97 PG Care Time/CCT Total # of Minutes Spent Total Time Spent with Patient: Total time spent is greater than 50% in coordination of care (as documented) at patient's floor/unit and/or counseling patient: Coding Level of Care Code 77783 Subseq Hosp Care Lvl 3 Diagnoses Small bowel obstruction K56.609
== END 2019-07-04 11:00 | disposition home or self-care (01) | DRG 390 ==
LOC: ED 17:28 → 3W 22:31 → SUATTDRO 22:31 → 3W 23:51